=== PATIENT | female | born 1940 | race Caucasian/White ===

== ENCOUNTER 2016-12-19 16:16 | Inpatient (IN) | payer MEDICARE ==
[~2016-12-19] VITALS: Ht 157.5 cm; Wt 58.2 kg
[~2016-12-19 16:16] MED LIST: ALPR.25 PO; ASPI81CH37 CHEW; CLON0.1T PO; ENAL10TA PO; LATA0.002 EACH EYE
[2016-12-19 16:34] VITALS: BP 181/85; PULSE 104; RESP 20; TEMP 97.9; O2SAT 98
--- NOTE | 2016-12-19 17:29 | PD ---
Physical Exam Time Seen by Provider: 17:29 Narrative 76-year-old female transferred from [place], appears anxious but in no acute distress. She has no acute medical needs at this time. She remains medically cleared for psychiatric screening for further evaluation and disposition. Data Data Last Documented VS Vital Signs Date Time Temp Pulse Resp B/P (MAP) Pulse Ox O2 Delivery O2 Flow Rate FiO2 12/19/16 16:34 97.9 104 20 181/85 (117) 98 MDM Medical Record Reviewed: Yes Supervised Visit with ALIX: No Differential Diagnosis Anxiety versus adjustment reaction disorder versus major disorder versus personality disorder Narrative Course 76-year-old female, medically cleared at [facility] ED, transfers here for psychiatric screen. Patient at this time has no acute medical needs. She remains medically cleared Mental health screening discussed with the patient. Psychiatric screen ordered. 1900 Pt has been assigned a room in psychiatric pod. Simultaneously, the nurse in the ambulance hallway allowed the patient's family to the back. At this time , the patient became very agitated and the family member was very upset. I assured her the patient was getting a bed, but this did not seem to calm her down. Family member is walked out of the ED with charge nurse and patient is transferred back to [facility]. Diagnosis Primary Impression: Anxiety Condition: Stable Sonam De Jesus Dec 19, 2016 17:29
[2016-12-19 19:34] VITALS: BP 195/100; PULSE 99; RESP 19; O2SAT 96
[2016-12-19] MEDS ORDERED: ALPRAZolam 0.5 MG TAB PO ONE (21:15)
[2016-12-19] MEDS ORDERED: cloNIDine HCL 0.1 MG TAB PO ONE (21:15)
[2016-12-19] MEDS ORDERED: ENALAPRIL MALEATE 5 MG TAB PO ONE (21:15)
[2016-12-19 22:00] VITALS: BP 188/100; PULSE 69; RESP 19; O2SAT 97
[2016-12-20 02:24] VITALS: BP 164/76; PULSE 84; RESP 12
[2016-12-20 06:11] VITALS: BP 135/61; PULSE 78; RESP 18; O2SAT 99
[2016-12-20] MEDS: ENALAPRIL MALEATE 10 MG TAB PO SCH (09:45)
[2016-12-20] MEDS: cloNIDine HCL 0.1 MG TAB PO SCH ×3 (09:45→18:00)
[2016-12-20] MEDS: ASPIRIN 81 MG CHEW TAB PO SCH (09:45)
[2016-12-20 11:00] VITALS: BP 135/68; PULSE 89; RESP 20; TEMP 98.5; O2SAT 98
[2016-12-20] MEDS: ALPRAZolam 0.5 MG TAB PO PRN ×2 (12:30→20:43)
--- NOTE | 2016-12-20 16:30 | PD ---
History of Present Illness Chief Complaint: Psychiatric Symptoms Time Seen by Provider: 15:50 Travel History International Travel<30 Days: No Contact w/Intl Traveler<30days: No Known affected area: No Legal Status Legal Status: Voluntary History of Present Illness: History of Present Illness HPI 76 year old Mexican female, voluntary, with long-standing history of anxiety who has multiple recurrent symptoms which are exacerbated by reduction of her alprazolam from 2 mg, to her current 0.25 mg. This reduction occurred after she moved to [place] from [place] 3 months ago. This is her third visit in the past month for similar complaints related to anxiety and not having medication. She was seen in [facility] ED this morning and the physician there felt she needed psychiatric intervention. She expressed to him that she had been increasingly depressed, sense of hopelessness, with increasing insomnia , and had wishes of wanting to kill herself. Patient seen. Record reviewed.She is alert and oriented female that appears stated age. She is maintaining hygiene. She communicates in Czech. her speech is clear and logical. There is no psychosis although she reports that at times she sees images. No auditory hallucinations. Reports feeling anxious with tightness in her chest , shortness of breath, excessive worry with difficulty controlling the worry , muscle tension, sleep disturbance./ She has been taking Xanax for many years and reports it helps with her symptoms. She also admits to feeling depressed and hopeless since she is not able to do the things she did in the past ans is unable to help her niece around the house. She denies current suicidal ideation. [facility] Past Medical History Anxiety: Yes Diabetes: No Diminished Hearing: No Hypertension: Yes Psychiatric: Yes ?: Not Past Surgical History Appendectomy: Yes Hysterectomy: Yes Psychiatric History Psychiatric History Hx Psychiatric Treatment: "panic attacks. No previous inpatietn tretametn but has been receiving psychiatric medication for many years. " History of Inpatient Treatment: No Guns or firearms in home: No Social History Single female. Retired. Born in [place]. Lived in [place]. Moved from [place] 3 months ago. has 2 adult sons. Was a house Hx Alcohol Use: No Hx Tobacco Use: No Hx Substance Use: No Family Psychiatric History Negative Allergies-Medications (Allergen,Severity, Reaction): Coded Allergies: penicillin G (Unverified Allergy, Severe, 12/16/16) Reported Meds & Prescriptions Reported Meds & Active Scripts Active Clonidine (Clonidine HCl) 0.1 Mg Tab 0.1 Mg PO TID Reported Latanoprost Opth Drops (Latanoprost) 0.005% Drops 1 Drop EACH EYE HS Refrigerate until opened. Enalapril (Enalapril Maleate) 10 Mg Tab 10 Mg PO DAILY Aspirin Low Dose (Aspirin) 81 Mg Chew 81 Mg CHEW DAILY Xanax (Alprazolam) 0.25 Mg Tab 0.25 Mg PO Q8H PRN Review of Systems Constitutional: COMPLAINS OF: Change in appetite Endocrine: DENIES: Abnorml menstrual pattern, Heat/cold intolerance, Polydipsia , Polyuria, Polyphagia Neurologic: COMPLAINS OF: Poor Balance Psychiatric: COMPLAINS OF: Anxiety Exam Alert: Yes [place]: Person (ox4) Mood: Anxious Affect: Appropriate, Tearful (at times) Speech: Clear, Logical Eye Contact: Normal Hallucinations: Other (negative) Suicidal: Ideation (denies any) Homicidal: Ideation (deneis) Insight/Judgement poor. Not impaired. MDM Medical Decision Making Medical Record Reviewed: Yes Assessment/Plan 76 year old Mexican female, voluntary, with long-standing history of anxiety who has multiple recurrent symptoms which are exacerbated by reduction of her alprazolam from 2 mg, to her current 0.25 mg. Patient moved to [facility] 3 months ago and has not been able to see a psychiatrist. She has been running out of her medication and has presented to ED three times in the past month. In addition to reporting anxiety she is reporting feeling depressed and hopel; ess. Patient will be admitted to inpatient psychiatry for further evaluation , initiation of medication, and to stabilize mood. Orders Orders Psych Screen (12/19/16 20:34) Alprazolam (Xanax) (12/19/16 21:15) Enalapril (Vasotec) (12/19/16 21:15) Latanoprost 0.005% Opth Soln (Xalatan 0. (12/20/16 21:00) Clonidine (Catapres) (12/19/16 21:15) Alprazolam (Xanax) (12/19/16 21:15) Aspirin Chew (Aspirin Chew) (12/20/16 09:00) Enalapril (Vasotec) (12/20/16 09:00) Clonidine (Catapres) (12/20/16 09:00) Diet Regular Basic (12/20/16 Breakfast) Diet Regular Basic (12/20/16 Lunch) Results Vital Signs Date Time Temp Pulse Resp B/P (MAP) Pulse Ox O2 Delivery O2 Flow Rate FiO2 12/20/16 11:00 98.5 89 20 135/68 (90) 98 Room Air 12/20/16 06:11 78 18 135/61 (85) 99 Room Air 12/20/16 02:24 84 12 164/76 (105) Room Air 12/19/16 22:00 69 19 188/100 (129) 97 Room Air 12/19/16 19:34 99 19 195/100 (131) 96 Room Air 12/19/16 16:34 97.9 104 20 181/85 (117) 98 Diagnosis Primary Impression: Anxiety Admitting Information Admitting Physician Requests: Admit Condition: Stable VahidCarmen Connor NURSE QUALITY Dec 20, 2016 16:30
[2016-12-20] MEDS ORDERED: ACETAMINOPHEN 325 MG TAB PO PRN (16:45)
[2016-12-20] MEDS ORDERED: MAGNESIUM HYDROXIDE SUSP 30 ML CUP PO PRN (16:45)
[2016-12-20] MEDS ORDERED: ALUMINUM/MAGNESIUM/SIMETH 30 ML CUP PO PRN (16:45)
[2016-12-20 18:06] VITALS: BP 98/53; PULSE 80; RESP 17; O2SAT 98
[2016-12-20 18:54] VITALS: BP 134/60; PULSE 84; RESP 16; TEMP 97.8; O2SAT 97
[2016-12-20] MEDS: LATANOPROST 0.005% OPHT SOLN 2.5 ML BTL EACH EYE SCH (21:00)
[2016-12-21 06:06] VITALS: BP 149/73; PULSE 72; RESP 16; TEMP 97.9; O2SAT 97
[2016-12-21] MEDS: ENALAPRIL MALEATE 10 MG TAB PO SCH (08:33)
[2016-12-21] MEDS: ASPIRIN 81 MG CHEW TAB PO SCH (08:33)
[2016-12-21] MEDS: cloNIDine HCL 0.1 MG TAB PO SCH ×3 (08:33→17:20)
[2016-12-21] MEDS: ALPRAZolam 0.5 MG TAB PO PRN ×3 (09:00→17:00)
[2016-12-21] MEDS ORDERED: LORazepam 2 MG/ML VIAL IM STA (09:44)
[2016-12-21] MEDS ORDERED: LORazepam 2 MG/ML VIAL ONE (09:47)
[2016-12-21] MEDS ORDERED: MAGNESIUM HYDROXIDE SUSP 30 ML CUP PO PRN (10:00)
[2016-12-21] MEDS ORDERED: ALUMINUM/MAGNESIUM/SIMETH 30 ML CUP PO PRN (10:00)
[2016-12-21] MEDS ORDERED: ACETAMINOPHEN 325 MG TAB PO PRN (10:00)
[2016-12-21] MEDS ORDERED: LORazepam 2 MG/ML VIAL IM PRN (10:00)
[2016-12-21] MEDS ORDERED: OLANZapine IM 10 MG VIAL IM ONE (10:01)
[2016-12-21] MEDS ORDERED: OLANZapine IM 10 MG VIAL IM STA (10:01)
--- NOTE | 2016-12-21 10:16 | HHI.HP ---
Provisional Diagnosis Admission Date Dec 20, 2016 at 16:37 [place]. 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 Express and informed consent means consent voluntarily given in writing, by a competent person, after sufficient explanation and disclosure of the subject matter involved to enable the person to make a knowing and willful decision without any element of force, fraud, deceit, duress, or other form of constraint or coercion. This person is 18 years of age or older, is not now known to be incompetent to consent to treatment with a guardian advocate, and does not have a health care surrogate or proxy currently making medical treatment decisions. I have found this person to be one of the following: []xxx Competent to provide express and informed consent, as defined above, for voluntary admission to this facility and is competent to provide express and informed consent for treatment. He/she has the consistent capacity to make well reasoned, willful, and knowing decisions concerning his or her medical or mental health treatment. The person fully and consistently understands the purpose of the admission for examination/placement and is fully capable of personally exercising all rights assured under [place] Incompetent to provide express and informed consent to voluntary admission, and this is incompetent to provide express and informed consent to treatment. The person must be transferred to involuntary status and a petition for a guardian advocate filed with the Circuit Court. [] Refusing to provide express and informed consent to voluntary admission but is competent to provide express and informed consent for treatment. The person must be discharged or transferred to involuntary status. Form shall be completed within 24 hours of a person's arrival at the receiving facility and filed in the clinical record of each person: 1. Admitted on a voluntary basis 2. Permitted to provide express and informed consent to his/her own treatment 3. Allowed to transfer from involuntary to voluntary status 4. Prior to permitting a person to consent to his or her own treatment after having been previously found incompetent to consent to treatment. History of Present Illness Capacity: Has Capacity HPI Patient is a 76-year-old Togolese female who comes here voluntarily. This is her fourth visit to [facility] in the past 2 weeks. It appears as patient is initially migrated here from [place] where she was on a chronic dose of 2 mg Xanax a few times per day. It appears she was somewhat precipitously decreased to 0.25 mg Xanax. Celexa increase anxiety panic and somewhat aggressive behavior. With The last patient was seen by our nurse practitioner and admitted. I was contacted and ordered 1 mg of Xanax 3 times a day when necessary the facility's the anxiety. Patient seen by me today. Speaks basically Niuean. We attempted to work with the computer automobile parts assembler. Patient is to anxious irritable and resistant to respond to that. She became more anxious irritable. Staff was unable to redirect her verbally. She became more aggressive slamming on the door slamming on the window between the ANB units. Patient is given 1 mg Ativan IM. She became increasingly angry and threatening towards staff necessitating 5 mg Zyprexa to be given IM. Counselor Evie has talked with patient's niece. We will meet with the niece tomorrow at about noon to discuss further treatment. Review of prior documented showed patient had fairly good orientation. We will continue her on the Xanax 1 mg every 8 hours when necessary. We will also order one-to-one sitter with this lady. Review of Systems ROS Limitations: Clinical Condition, Altered Mental Status Past Psych History Psychological trauma history Unknown at this time due to patient's mental status Violence risk - others (6 mos) Patient aggressive with staff at this time Violence risk - self (6 mos) Unknown at this time Substance Abuse History Drugs/Alcohol past 12 months Denies Past Family Social History Coded Allergies: penicillin G (Unverified Allergy, Severe, 12/16/16) Past Medical History Patient medically cleared ED Active Scripts Clonidine (Clonidine) 0.1 Mg Tab, 0.1 MG PO TID for Blood Pressure Management, # 60 TAB 0 Refills Prov:Gregory Worrell MD 12/16/16 Reported Medications Latanoprost Opth Drops (Latanoprost Opth Drops) 0.005% Drops, 1 DROP EACH EYE HS for Glaucoma, #2.5 ML 0 Refills Refrigerate until opened. 12/16/16 Enalapril (Enalapril) 10 Mg Tab, 10 MG PO DAILY, TAB 0 Refills 12/16/16 Aspirin (Aspirin Low Dose) 81 Mg Chew, 81 MG CHEW DAILY, TAB 0 Refills 12/16/16 Alprazolam (Xanax) 0.25 Mg Tab, 0.25 MG PO Q8H Y for ANXIETY, TAB 0 Refills 12/16/16 Current Medications Medications (Trade) Dose Ordered Sig/Louis Route Start Time Stop Time Status Last Admin (Xalatan 0.005% Opth Soln) 1 drop HS EACH EYE 12/20/16 21:00 (Xanax) 1 mg Q8H PRN PO 12/19/16 21:15 12/20/16 20:43 (Aspirin Chew) 81 mg DAILY PO 12/20/16 09:00 12/21/16 08:33 (Vasotec) 10 mg DAILY PO 12/20/16 09:00 12/21/16 08:33 (Catapres) 0.1 mg TID PO 12/20/16 09:00 12/21/16 08:33 (Tylenol) 650 mg Q4H PRN PO 12/20/16 16:45 12/20/16 20:05 (Milk Of Magnesia Liq) 30 ml DAILY PRN PO 12/20/16 16:45 (Mag-Al Plus Susp Liq) 30 ml Q6H PRN PO 12/20/16 16:45 (Ativan Inj) 1 mg Q6H PRN IM 12/21/16 10:00 UNV (Tylenol) 650 mg Q4H PRN PO 12/21/16 10:00 UNV (Milk Of Magnesia Liq) 30 ml DAILY PRN PO 12/21/16 10:00 UNV (Mag-Al Plus Susp Liq) 30 ml Q6H PRN PO 12/21/16 10:00 UNV Family History Unknown at this time due to patient's mental status Social History It appears patient recently immigrated here from [place] with recent significant change in her Xanax dosage Patient's Strengths (min. 2) Lesion verbal intellectual self-care appears to have supportive family Physical Exam Patient medically cleared ED patient seen in dayroom in no acute physical distress, patient no respiratory distress, no complaints of abdominal pain, moves all 4 extremities without difficulty. No abnormal motor movements noted Vital Signs Vital Signs Date Time Temp Pulse Resp B/P (MAP) Pulse Ox O2 Delivery O2 Flow Rate FiO2 12/21/16 06:06 97.9 72 16 149/73 (98) 97 12/20/16 18:06 Room Air I/O 12/21/16 12/21/16 12/22/16 08:00 16:00 00:00 Intake Total 240 ml Balance 240 ml Lab Results Test 12/21/16 07:30 Mental Status Examination Patient Niuean-speaking somewhat anxious irritable demanding and manipulative. Though she appears to understand South Korean better than she is willing to acknowledge. Appearance Somewhat disheveled Speech: Pressured, Rapid, Other (only Niuean-speaking) Orientation: Person, Place (she no she is in a hospital) Memory: Impaired (describe) Thought Process: Other (difficult ascertain due to anxiety and language barrier ) Thought Content: Other (difficult to ascertain due to language and anxiety) Language Poor Fund of Knowledge Poor Hallucination Type: None (denies) Attention and Concentration: Other (poor) Suicidal Ideation: No (denies) Previous Suicide Attempts: No Homicidal Ideation: No (denies) Previous Homicide Attempts: No Insight: Poor Judgment: Poor Affect: Other (increase range and intensity) Mood: Angry, Anxious, Irritable Motor Activity: Normal gait Assessment & Plan Problem List: (1) Generalized anxiety disorder ICD Codes: F41.1 - Generalized anxiety disorder (2) Adjustment disorder with mixed disturbance of emotions and conduct ICD Codes: F43.25 - Adjustment disorder with mixed disturbance of emotions and conduct Assessment & Plan Estimated LOS: days patient remains markedly anxious though perhaps somewhat confused related to language barriers and a strain situation. She did receive a when necessary Ativan IM and Zyprexa and due to increased agitation threatening behavior slamming her fists against the window in the door between AMB units. Will be meeting with patient's family noon tomorrow to discuss future treatment Discharge Planning To be determined Elijah Nichols MD Dec 21, 2016 10:16
[2016-12-21 10:23] LABS: ANION GAP 11 MEQ/L (5-15); BLOOD UREA NITROGEN 25 MG/DL (7-18); CHLORIDE 101 MEQ/L (98-107); GLOMERULAR FILTRATION RATE 45 ML/MIN (>89); POTASSIUM 3.4 MEQ/L (3.5-5.1); SODIUM (NA) 138 MEQ/L (136-145)
[2016-12-21 10:50] LABS: HDL CHOLESTEROL 58.4 MG/DL (40.0-60.0); LDL CHOLESTEROL 95 MG/DL (0-99)
[2016-12-21 11:07] LABS: HEMOGLOBIN A1a 0.9 %; HEMOGLOBIN A1b 1.7 %; HEMOGLOBIN Ao 85.7 %; HEMOGLOBIN LA1C 2.1 %; HEMOGLOBIN P3 3.6 %
[2016-12-21] MEDS ORDERED: ERGOCALCIFEROL (VIT D2) 50,000 UNIT CAP PO SCH (15:00)
[2016-12-21 16:30] VITALS: BP 145/63; PULSE 82; RESP 18; TEMP 98.2; O2SAT 94
[2016-12-21] MEDS: LATANOPROST 0.005% OPHT SOLN 2.5 ML BTL EACH EYE SCH (20:58)
[2016-12-22 05:23] VITALS: BP 148/74; PULSE 90; RESP 18; TEMP 97.7; O2SAT 97
[2016-12-22] MEDS: cloNIDine HCL 0.1 MG TAB PO SCH (08:36)
[2016-12-22] MEDS: ENALAPRIL MALEATE 10 MG TAB PO SCH (08:36)
[2016-12-22] MEDS ORDERED: ASPIRIN 81 MG CHEW TAB CHEW SCH (09:00)
[2016-12-22] MEDS ORDERED: ASPI81CH25 CHEW (11:30)
[2016-12-22] MEDS ORDERED: CLON.1 PO (11:30)
[2016-12-22] MEDS ORDERED: XANA1TAB2 PO (11:30)
[2016-12-22] MEDS ORDERED: ENAL10TA PO (11:30)
[2016-12-22] MEDS ORDERED: LATA.005%O EACH EYE (11:30)
--- NOTE | 2016-12-22 11:38 | HHI.DS ---
Psychiatry Discharge Summary Inpatient Psychiatric care?: Yes Advance Directive: No Mental Health AdvanceDirective: No Health Care Proxy: No Admission Admission Date Dec 20, 2016 at 16:37 Admission Diagnosis: (1) Adjustment disorder with mixed disturbance of emotions and conduct ICD Code: F43.25 - Adjustment disorder with mixed disturbance of emotions and conduct (2) Generalized anxiety disorder ICD Code: F41.1 - Generalized anxiety disorder Brief History Patient is a 76-year-old [place] female who comes here voluntarily. This is her fourth visit to [facility] in the past 2 weeks. It appears as patient is initially migrated here from [place] where she was on a chronic dose of 2 mg Xanax a few times per day. It appears she was somewhat precipitously decreased to 0.25 mg Xanax. Celexa increase anxiety panic and somewhat aggressive behavior. With The last patient was seen by our nurse practitioner and admitted. I was contacted and ordered 1 mg of Xanax 3 times a day when necessary the facility's the anxiety. Patient seen by me today. Speaks basically Sami. We attempted to work with the computer locomotive supervisor. Patient is to anxious irritable and resistant to respond to that. She became more anxious irritable. Staff was unable to redirect her verbally. She became more aggressive slamming on the door slamming on the window between the ANB units. Patient is given 1 mg Ativan IM. She became increasingly angry and threatening towards staff necessitating 5 mg Zyprexa to be given IM. Counselor Evie has talked with patient's niece. We will meet with the niece tomorrow at about noon to discuss further treatment. Review of prior documented showed patient had fairly good orientation. We will continue her on the Xanax 1 mg every 8 hours when necessary. We will also order one-to-one sitter with this lady. Tobacco Use In Past 30 Days: No Tobacco Past 30 Days Alcohol Use: Monthly or Less Hospital Course Patient's hospital course was somewhat chaotic. It appears was significantly influenced by patient's language difficulties. Confusion anxiety and fear with the strange environment and situation. It is also exacerbated by the drastic reduction in her benzodiazepines that she had been on for a number of years. We did meet today with patient's niece and patient's older sister who is 90+ years old. It appears the knees were patient from the [facility] about 2 months ago because of patient's inability to live independently. There is been difficulty with follow-up prescriptions for her Xanax that she been taking 2 mg twice a day for extended period of time. I feel this as precipitated and increased stressors and anxiety irritability and anger. The niece does not remember any prior significant mental health history though there some type of follow-up 2 years ago in [place] patient initially was unwilling to come from the ER dayroom to my office to visit with her family. We did bring patient's niece back to the day room patient recognized her showed immediate attraction and comfort with her. Stated she wished to be discharged to go home. Patient' s niece is willing to do that. I agree. I feel maintaining patient on this unit with all be detrimental to her long-term well-being. We will arrange for [facility] within 2 weeks. The niece is arrange for family practice follow-up within the next week. I'll prescribe Xanax 1 mg 1 by mouth twice a day when necessary anxiety #28 with no refills to help bridge until mental health follow-up. At this time I feel patient reached maximum benefit of this hospitalization. Family in a look into alternative placements less chaotic manner. Once the patient is settled at home. Thus patient to be discharged today to her niece Results Blood Pressure 148 / 74 Vital Signs Date Time Temp Pulse Resp B/P (MAP) Pulse Ox O2 Delivery O2 Flow Rate FiO2 12/22/16 05:23 97.7 90 18 148/74 (98) 97 12/20/16 18:06 Room Air Laboratory Tests Test 12/21/16 07:30 Blood Urea Nitrogen 25 MG/DL (7-18) Creatinine 1.16 MG/DL (0.50-1.00) Random Glucose 111 MG/DL (74-106) Potassium Level 3.4 MEQ/L (3.5-5.1) Estimat Glomerular Filtration Rate 45 ML/MIN (>89) Vitamin B12 Level 99 PG/ML (193-986) 25-Hydroxy Vitamin D Total 10.6 ng/ML (30-100) Laboratory Results Test 12/21/16 07:30 Cholesterol Level 168 MG/DL (120-200) HDL Cholesterol 58.4 MG/DL (40.0-60.0) Hemoglobin A1c 5.4 % (4.3-6.0) LDL Cholesterol 95 MG/DL (0-99) Triglycerides Level 75 MG/DL (42-150) Summary of Procedures None done Pending results at discharge: No Medications # of Antipsychotic meds at D/C: 0 Approp Antipsych med options 1 - Minimum of three failed multiple trials of monotherapy. 2 - Documented plan to taper to monotherapy due to previous use of multiple meds OR cross-taper in progress at D/C. 3 - Documentation of augmentation of Clozapine. 4 - Justification other than those listed in allowable values 1-3, document here : Discharge Discharge Date: Dec 22, 2016 Discharge Diagnosis: (1) Adjustment disorder with mixed disturbance of emotions and conduct Diagnosis: Principal ICD Code: F43.25 - Adjustment disorder with mixed disturbance of emotions and conduct (2) Generalized anxiety disorder Diagnosis: Principal ICD Code: F41.1 - Generalized anxiety disorder Mental Status Exam at Disch Somewhat difficult to ascertain due to patient's language difficulty. The patient did recognize and acknowledge her niece without difficulty is aware of where she is tender desired to be discharged. She does denies suicidality homicidality voices or visions. Insight and judgment is poor cognition appears perhaps somewhat impaired. Pt Condition on Discharge: Stable Discharge Disposition: Discharge Home Discharge Instructions Diet Instructions: As Tolerated, No Restrictions Activities you can perform: Regular-No Restrictions Scheduled Appointment: minnie Discharge Time > 30 minutes Discharge/Advance Care Plan Health Problems: (1) Generalized anxiety disorder (2) Adjustment disorder with mixed disturbance of emotions and conduct Goals to promote your health * To prevent worsening of your condition and complications * To maintain your health at the optimal level Directions to meet your goals Take your medications as prescribed Follow your dietary instruction Follow activity as directed Keep your appointments as scheduled Take your immunizations and boosters as scheduled If your symptoms worsen call your PCP, if no PCP go to Urgent Care Center or Emergency Room For 14/11 questions related to your inpatient stay or results of tests pending at discharge, please contact Dr. Elijah Nichols at Smoking is Dangerous to Your Health. Avoid second hand smoking Elijah Nichols MD Dec 22, 2016 11:38
== END 2016-12-22 12:15 | disposition home or self-care (01) | DRG 880 ==
LOC: NEDAMB 16:16 → NEDA 12-20 16:37 → H250 12-20 18:31
PROVIDERS: ADMIT Psychiatry & Neurology Psychiatry; ATTEND Psychiatry & Neurology Psychiatry
DX: F41.1 Generalized anxiety disorder (principal); I10 Essential (primary) hypertension; F43.25 Adjustment disorder with mixed disturbance of emotions and conduct; H40.9 Unspecified glaucoma
CPT/HCPCS: 71010; 80048; 80053; 80061; 82306; 82550; 82552; 82607; 83036; 83735; 83880; 84443; 84484; 85025; 85610; 85730; 93005; 99285; J2060